=== PATIENT | male | born 2000 | race Hispanic/Latino ===

== ENCOUNTER 2020-01-02 16:25 | Emergency (ER) | payer OTHER, SELFPAY ==
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
[2020-01-02 17:56] VITALS: BP 133/86; PULSE 140; RESP 18; TEMP 36.8; O2SAT 100
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
--- NOTE | 2020-01-02 19:21 | PC.NURSE ---
rn report given to benjie
[2020-01-02 20:31] VITALS: BP 132/88; PULSE 98; RESP 16; O2SAT 98
== END 2020-01-02 20:31 | disposition home or self-care (01) ==
PROVIDERS: Emergency Provider Emergency Medicine; PCP Family Medicine
DX: S50.01XA Contusion of right elbow, initial encounter (principal); S40.011A Contusion of right shoulder, initial encounter; V49.50XA Passenger injured in collision with unspecified motor vehicles in traffic accident, initial encounter
CPT/HCPCS: 71045; 73080; 99284

== ENCOUNTER 2023-07-29 19:55 | Emergency (ER) | payer SELFPAY | END 2023-07-29 20:50 | disposition left against medical advice (07) | DX: Z53.21 Procedure and treatment not carried out due to patient leaving prior to being seen by health care provider (principal) | CPT/HCPCS: 99199 ==